=== PATIENT | male | born 1980 | race Caucasian/White ===

== ENCOUNTER 2024-05-28 21:25 | Emergency (ER) | payer BC, SELFPAY ==
[2024-05-28 21:44] VITALS: BP 114/82
[2024-05-28 21:44] LABS: % Basophils 0.4 % (0-2); % Eosinophils 0.8 % (0-6); % Immature Granulocytes 0.3 % (0-0.5); % Monocytes 5.4 % (1.7-9.3); % Neutrophils 79.1 % (42.2-75.2); Absolute Eosinophils 0.1 10^3/uL (0-0.7); Absolute Lymphocytes 1.5 10^3/uL (1.2-3.4); Absolute Monocytes 0.6 10^3/uL (0.1-0.6); Absolute Neutrophils 8.7 10^3/uL (1.4-6.5); Hematocrit 39.9 % (39.0-52.0); Mean Corp Hgb Conc. 35.1 g/dL (33.0-37.0); Mean Corpuscular Hgb 30.6 pg (27.0-31.0); Mean Corpuscular Volume 87.1 fL (80.0-94.0); Mean Platelet Volume 9.8 fL (7.4-10.4); Nucleated Red Blood Cells % 0 % (-); Platelet Count 234 10^3/uL (130-400); Red Blood Cell Count 4.58 10^6/uL (4.70-6.10); Red Cell Dist. Width 11.9 % (11.5-14.5)
[2024-05-28 21:52] LABS: Urine Albumin 2+ (Neg - Trace); Urine Bilirubin Negative (Negative); Urine Character Clear (Clear); Urine Color Yellow; Urine Glucose Negative (Negative); Urine Ketone 1+ (Negative); Urine Leukocyte 1+ (Negative); Urine Nitrite Negative (Negative); Urine Occult Blood Negative (Negative); Urine Urobilinogen 1+ (Neg - 1+)
[2024-05-28 21:57] LABS: Urine Calcium Oxalate Crystals Present; Urine Mucus Moderate; Urine Squamous Cell 0-2 /LPF (Few)
[2024-05-28 21:58] LABS: Urine Red Blood Cell 0-2 /HPF (0-2)
[2024-05-28 21:59] LABS: Urine Bacteria Few (Negative); Urine White Cell 0-2 /HPF (0-5)
[2024-05-28 22:02] LABS: ALT (SGPT) 28 U/L (0-50); AST (SGOT) 33 U/L (17-59); Albumin 4.6 g/dl (3.5-5.0); Alkaline Phosphatase 58 U/L (38-126); Blood Urea Nitrogen 19 mg/dl (9-20); Carbon Dioxide 29 mmol/L (22-30); Chloride 103 mmol/L (98-107); Glucose 127 mg/dl (70-99); Lipase 187 U/L (23-300); Sodium 140 mmol/L (135-145); Total Bilirubin 0.4 mg/dl (0.2-1.3); Total Protein 7.1 g/dl (6.3-8.2); eGFR > 60.00
[2024-05-28 22:03] LABS: Urine Uric Acid Crystals Seen
[2024-05-28 22:26] VITALS: BP 112/68; BMI 21.8
[2024-05-28 23:00] VITALS: BP 112/65
[2024-05-28] MEDS: TORADOL 15 MG IV (23:19)
[2024-05-29 00:13] VITALS: BP 115/58
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
== END 2024-05-29 01:08 | disposition home or self-care (01) ==
LOC: EMR 21:25
PROVIDERS: Emergency Medicine; EMERGENCY PHYSICIAN Emergency Medicine; FAMILY PHYSICIAN Student in an Organized Health Care Education/Training Program
DX: S09.90XA Unspecified injury of head, initial encounter (principal); S30.1XXA Contusion of abdominal wall, initial encounter; Y93.55 Activity, bike riding
CPT/HCPCS: 99284; 96374; 70450; 72125; 74177; 80053; 81003; 81015; 83690; 85025; 87086; 93005; Q9967

== ENCOUNTER 2024-11-20 08:17 | Emergency (ER) | payer BC, SELFPAY ==
[2024-11-20 08:19] VITALS: BP 132/80
[2024-11-20 08:41] VITALS: BP 115/80
--- NOTE | 2024-11-20 08:45 | ED.GENMED ---
History of Present Illness
General
Chief Complaint: Throat Problem
Source: patient
Time Seen by Provider: 11/20/24 08:34
History of Present Illness
History of Present Illness:
43-year-old male with no significant past medical history presents to the emergency department for evaluation of an abnormal sensation in his throat that started on Sunday evening stating that the throat is not painful or irritated but that he feels
as if when he takes a deep breath his throat is closing at times. He notes no change to oral intake to solids or liquids, no cough, no pleurisy, no hemoptysis, no fevers or infectious symptoms, sinus congestion, headache, sputum production or any
other concerns. Denies any history of similar. States he does not need any fish or meat so has no concern for possible foreign body. Social history noncontributory, denies history of smoking. No other concerns.
Past History
Past History
ED Past Medical History: None
ED Past Surgical History: Orthopedic
Social History
Tobacco: Non-smoker
Alcohol: Occasional
Drug: None
Personal: Single
Living: with family
Employment: Employed
Review of Systems
Review of Systems
All Other Systems: ROS reviewed and negative except as documented in HPI and ROS
Phy Exam
Physical Exam
Physical Exam:
GENERAL: Alert , in no apparent distress
HEAD: Normocephalic atraumatic
EYE: conjunctiva clear
NECK: Supple, no significant adenopathy. No goiter, no stridor or trismus
ENT: o/p clr, mmm.
CARDIAC: Regular rate and rhythm
LUNGS: Clear breath sounds bilaterally, no acute respiratory distress, no wheezes/rales/rhonchi
NEUROLOGICAL: Alert and oriented
SKIN: Warm and dry, skin intact.
MUSCULOSKELETAL: well perfused.
PSYCH: Normal and appropriate interaction.
Scores
Heart Failure Risk
Heart Failure Risk Score: Not Applicable
Heart Score for Chest Pain Patients
STEMI patient?: Not applicable
Withdrawal Assessment of Alcohol
Withdrawal Assessment Completed?: Not applicable
Course
Orders/Labs/Results
Orders:
Orders
11/20/24 08:44
CR Soft Tissue Neck Urgent
Comment:
Reason For Exam: abnormal throat sensation
Vital Signs
Initial and Last Documented VS:
Initial Vital Signs
Temp Pulse Resp BP Pulse Ox
97.5 F 65 16 132/80 100
11/20/24 08:19 11/20/24 08:19 11/20/24 08:19 11/20/24 08:19 11/20/24 08:19
Last Documented Vital Signs
Temp Pulse Resp BP Pulse Ox
97.5 F 69 13 121/78 98
11/20/24 08:19 11/20/24 10:01 11/20/24 10:01 11/20/24 10:01 11/20/24 10:01
MDM/Problems Addressed
Differential Diagnosis Includes:
Thyroiditis
GERD
Infectious etiology (pharyngitis, strep, tonsillitis, [employer], retropharyngeal abscess)
Malignancy
Foreign Body
MDM/Problems Addressed:
43-year-old male presenting to the ER for evaluation of abnormal sensation in his throat, denies any pain associated, no other infectious symptoms to suggest infectious etiology. Maintaining airway, no stridor or trismus, overall very
well-appearing. No abnormal findings within the posterior oropharynx, uvula midline, airway patent. Overall doubt any emergent pathology but unclear source for patient's symptoms at this time. Will obtain x-ray to further evaluate. Anticipate
this will come back unremarkable and that patient will likely need follow-up with the ENT for further evaluation. Patient did express understanding and is agreeable with this plan.
*Radiology
Radiology exam reviewed: preliminary read by ED provider (no acute abnormalities)
*Pulse Oximetry
SaO2: 100
Oxygen Mode of Delivery: Room air
Patient hypoxic: no
*Critical Care Note
Total Time (30-74mins, 75-104mins- exclusive of procedures): Not Applicable
Patient Management
Escalation/DeEscalation of care consider admission/obs:
X-ray without any acute abnormalities. Stable for discharge home, recommended close follow-up with ENT team. Patient aware of return precautions
ED Attending Note
-
Portions of this chart may have been created with voice recognition software.� Occasional wrong word or��sound alike� substitutions may have occurred due to the inherent limitations of voice recognition software.
Discharge Plan
Departure
Patient Disposition: Home (Routine Discharge)
Date of Disposition: 11/20/24
Time of Disposition: 09:56
Patient with high blood pressure during this ER visit?: No
Discharge Problem:
Throat discomfort
Prescriptions:
No Action
No Current Medications
0
Referrals:
Royce Gary MD [Active, Otology]
Carlos Watters MD, Resident [Family Provider, General]
Stand Alone Forms: Return to Work
Interventions
Interventions:
*Risk Screen - Suicide Last Done: 11/20/24 08:20
*General Assessment Last Done: 11/20/24 08:37
*Neglect/Abuse Screening Last Done: 11/20/24 08:20
*ED- Fall Risk Assessment Last Done: 11/20/24 08:37
*ED COVID-19 Vaccine History Last Done: 11/20/24 08:37
*ED Influenza Vaccine History Last Done: 11/20/24 08:37
*Nursing Disposition Last Done: 11/20/24 10:05
ED-EENT Assessment Last Done: 11/20/24 08:37
ED- Pulmonary Assessment Last Done: 11/20/24 08:37
Discharge Date and Time
Discharge Date/Time: 11/20/24 10:06
Print Language: FRISIAN
[2024-11-20 08:49] VITALS: BMI 22.9
[2024-11-20 09:00] VITALS: BP 123/80
[2024-11-20 10:01] VITALS: BP 121/78
== END 2024-11-20 10:06 | disposition home or self-care (01) ==
LOC: EMR 08:17
PROVIDERS: EMERGENCY PHYSICIAN Emergency Medicine; FAMILY PHYSICIAN Student in an Organized Health Care Education/Training Program
DX: R09.89 Other specified symptoms and signs involving the circulatory and respiratory systems (principal)
CPT/HCPCS: 99283; 70360